=== PATIENT | female | born 1935 | race Caucasian/White ===

== ENCOUNTER 2020-09-29 07:44 | Day surgery (SDC) | payer OTHER ==
[2020-09-23 15:02] VITALS: BMI 22.4
[2020-09-29] MEDS ORDERED: TETRACAINE 0.5% OPHTH SOLN 2 ML BOTTLE ONE (09:00)
[2020-09-29] MEDS ORDERED: ERYTHROMYCIN 0.5% OPHTHALMIC OINTMENT 3.5 GM TUBE ONE (09:00)
[2020-09-29] MEDS ORDERED: LIDOCAINE 1%/EPI 1:100000 (20 ML MULTI DOSE VIAL) ONE (09:01)
[2020-09-29] MEDS ORDERED: POVIDONE-IODINE 5% OPHTHALMIC PREP 30 ML SOLUTION ONE (09:01)
[2020-09-29] MEDS ORDERED: PROPOFOL 20 ML ONE (09:13)
[2020-09-29] MEDS ORDERED: MIDAZOLAM HCL 2 MG/2 ML SINGLE DOSE VIAL ONE (09:13)
[2020-09-29] MEDS ORDERED: ONDANSETRON 4 MG/2 ML VIAL ONE (09:53)
[2020-09-29] MEDS ORDERED: KETOROLAC TROMETHAMINE 30 MG/1 ML VIAL ONE (09:53)
[2020-09-29] MEDS ORDERED: DEXAMETHASONE SOD PHOSPHATE 4 MG/1 ML VIAL ONE (09:53)
[2020-09-29] MEDS ORDERED: ceFAZolin SODIUM 1 GM VIAL ONE (09:53)
[2020-09-29] MEDS ORDERED: PROMETHAZINE HCL 25 MG/1 ML VIAL IVPUSH PRN (10:55)
[2020-09-29] MEDS ORDERED: ONDANSETRON 4 MG/2 ML VIAL IVPUSH PRN (10:55)
[2020-09-29] MEDS ORDERED: oxyCODONE HCL 5 MG TABLET PO PRN (10:55)
[2020-09-29 12:36] VITALS: TEMP 97.9
[2020-09-29 12:52] VITALS: BP 141/74; PULSE 61
== END 2020-09-29 12:56 | disposition home or self-care (01) ==
LOC: FASU 07:44
PROVIDERS: ATTEND Ophthalmology
PROC: 08SR0ZZ Reposition Left Lower Eyelid, Open Approach (ICD-10-PCS; principal; 2020-09-29 10:03)
DX: H02.135 Senile ectropion of left lower eyelid (principal)
CPT/HCPCS: 94760